=== PATIENT | male | born 1995 | race Caucasian/White ===

== ENCOUNTER 2024-05-28 11:59 | Emergency (ER) | payer OTHER | END 2024-05-28 14:04 | disposition home or self-care (01) | LOC: CSHERS 11:59 | DX: S30.22XA Contusion of scrotum and testes, initial encounter (principal); N44.8 Other noninflammatory disorders of the testis; X58.XXXA Exposure to other specified factors, initial encounter | CPT/HCPCS: 76870; 93976 ==

== ENCOUNTER 2024-05-28 19:40 | Emergency (ER) | payer OTHER ==
[2024-05-28] MEDS ORDERED: HYDROcodone/Acetaminophen 5/325 mg Tablet ONE (20:07)
== END 2024-05-28 21:15 | disposition home or self-care (01) ==
LOC: CSHERS 19:40
DX: S39.94XA Unspecified injury of external genitals, initial encounter (principal); N50.89 Other specified disorders of the male genital organs; X58.XXXA Exposure to other specified factors, initial encounter
CPT/HCPCS: 76870; 93976